=== PATIENT | female | born 1960 | race Caucasian/White ===

== ENCOUNTER 2023-10-29 17:06 | Outpatient (RCR) | payer BC, SELFPAY | END 2023-10-29 23:59 | disposition home or self-care (01) | LOC: RPT 17:06 | PROVIDERS: ATTENDING PHYSICIAN Psychiatry & Neurology Neurology; FAMILY PHYSICIAN Family Medicine | DX: M54.9 Dorsalgia, unspecified (principal); Z73.6 Limitation of activities due to disability | CPT/HCPCS: 97010; 97110; 97112; 97140; 97162 ==

== ENCOUNTER 2023-11-24 17:43 | Outpatient (RCR) | payer BC, SELFPAY | END 2023-12-01 07:38 | disposition home or self-care (01) | LOC: RPT 17:43 | PROVIDERS: FAMILY PHYSICIAN Family Medicine | DX: M54.9 Dorsalgia, unspecified (principal); Z73.6 Limitation of activities due to disability | CPT/HCPCS: 97010; 97110; 97112; 97140 ==

== ENCOUNTER 2024-01-27 12:33 | Outpatient (RCR) | payer BC, SELFPAY | END 2024-01-27 23:59 | disposition home or self-care (01) | LOC: RPT 12:33 | PROVIDERS: ATTENDING PHYSICIAN Physician Assistant Medical; FAMILY PHYSICIAN Family Medicine | DX: M54.50 Low back pain, unspecified (principal); M25.552 Pain in left hip; R10.30 Lower abdominal pain, unspecified; Z73.6 Limitation of activities due to disability; M43.26 Fusion of spine, lumbar region | CPT/HCPCS: 97110; 97162 ==

== ENCOUNTER 2024-03-02 17:12 | Outpatient (RCR) | payer BC, SELFPAY | END 2024-03-02 23:59 | disposition home or self-care (01) | LOC: RPT 17:12 | PROVIDERS: ATTENDING PHYSICIAN Physician Assistant Medical; FAMILY PHYSICIAN Family Medicine | DX: M54.50 Low back pain, unspecified (principal); M25.552 Pain in left hip; R10.30 Lower abdominal pain, unspecified; Z73.6 Limitation of activities due to disability; M43.26 Fusion of spine, lumbar region | CPT/HCPCS: 97010; 97110; 97112 ==

== ENCOUNTER 2024-03-28 17:15 | Outpatient (RCR) | payer BC, SELFPAY | END 2024-03-28 23:59 | disposition home or self-care (01) | LOC: RPT 17:15 | PROVIDERS: ATTENDING PHYSICIAN Physician Assistant Medical; FAMILY PHYSICIAN Family Medicine | DX: Z47.89 Encounter for other orthopedic aftercare (principal); M54.50 Low back pain, unspecified (principal); M25.552 Pain in left hip; R10.30 Lower abdominal pain, unspecified; Z73.6 Limitation of activities due to disability; M43.26 Fusion of spine, lumbar region | CPT/HCPCS: 97010; 97110; 97112; 97140 ==

== ENCOUNTER → 2024-03-30 16:07 | Outpatient (REF) | payer BC, SELFPAY | LOC: WDC 16:07 | PROVIDERS: ATTENDING PHYSICIAN Obstetrics & Gynecology; FAMILY PHYSICIAN Physician Assistant Medical | DX: M53.3 Sacrococcygeal disorders, not elsewhere classified (principal); M54.17 Radiculopathy, lumbosacral region; Z12.31 Encounter for screening mammogram for malignant neoplasm of breast | CPT/HCPCS: 72192; 77063; 77067 ==

== ENCOUNTER 2024-04-27 06:32 | Day surgery (SDC) | payer BC, SELFPAY ==
[2024-03-31 06:28] VITALS: BMI 30.8
[2024-03-31 09:12] LABS: Hematocrit 36.5 % (37.0-47.0); Hemoglobin 12.7 g/dL (12.0-16.0); Mean Corp Hgb Conc. 34.8 g/dL (33.0-37.0); Mean Corpuscular Hgb 33.9 pg (27.0-31.0); Mean Corpuscular Volume 97.3 fL (81.0-99.0); Mean Platelet Volume 11.6 fL (7.4-10.4); Platelet Count 281 10^3/uL (130-400); Red Blood Cell Count 3.75 10^6/uL (4.20-5.40); White Blood Cell Count 5.4 10^3/uL (4.8-10.8)
[2024-04-08 07:57] LABS: Blood Urea Nitrogen 26 mg/dl (7-17); Calcium 10.2 mg/dl (8.4-10.2); Carbon Dioxide 22 mmol/L (22-30); Chloride 103 mmol/L (98-107); Estimated Creatinine Clearance 76 ml/min; Glucose 117 mg/dl (70-99); Potassium 4.7 mmol/L (3.5-5.1); Sodium 138 mmol/L (135-145); eGFR > 60.00
[2024-04-27] VITALS (10 sets, daily range): BP systolic 132–166; BP diastolic 74–85; BMI 30.8
[2024-04-27] MEDS: TYLENOL 1000 MG PO (13:01)
[2024-04-27] MEDS: NORMOSOL-R/PLASMALYTE-A 1000 IV (13:35)
[2024-04-27] MEDS: DILAUDID 0.5 MG IV (16:04)
[2024-04-27] MEDS: ROXICODONE 5 MG PO (16:53)
== END 2024-04-27 17:25 | disposition home or self-care (01) ==
LOC: SDS 06:32
PROVIDERS: ATTENDING PHYSICIAN Surgery; FAMILY PHYSICIAN Family Medicine
DX: K40.90 Unilateral inguinal hernia, without obstruction or gangrene, not specified as recurrent (principal)
CPT/HCPCS: 49650; 36415; 80048; 85027; 93005; C1781

== ENCOUNTER 2024-06-05 15:10 | Emergency (ER) | payer BC, SELFPAY ==
[2024-06-05 15:12] VITALS: BP 127/86
[2024-06-05 16:10] VITALS: BP 122/68
[2024-06-05 16:13] VITALS: BP 122/68; BMI 28.9
--- NOTE | 2024-06-05 16:16 | ED.GENMED ---
History of Present Illness
General
Chief Complaint: Abdominal Pain
Source: patient
Exam Limitations: none
Time Seen by Provider: 06/05/24 15:24
Nursing documentation reviewed up to this point in time: agreed with
History of Present Illness
History of Present Illness:
64-year-old female presenting to the emergency department today with concerns of diffuse abdominal pain nausea constipation over the past 5 days gradually worsening. Denies any fevers chest pain shortness of breath.
Past History
Past History
ED Past Medical History: Cancer (Melanoma) and Other (Osteoarthritis)
ED Past Surgical History: Orthopedic
Social History
Tobacco: Non-smoker
Alcohol: None
Drug: None
Review of Systems
Review of Systems
Allergies reviewed?: Yes
All Other Systems: ROS reviewed and negative except as documented in HPI and ROS
Phy Exam
Physical Exam
Physical Exam:
GENERAL: Alert , in no apparent distress
EYE: pupils equal and reactive
NECK: Supple, no significant adenopathy.
ENT: o/p clr, mmm.
CARDIAC: Regular rate and rhythm .
LUNGS: Clear breath sounds bilaterally, no acute respiratory distress, no wheezes/rales/rhonchi
ABDOMEN: Vague diffuse abdominal pain otherwise soft no focal tenderness
NEUROLOGICAL: Alert and oriented, no focal neuro deficits
SKIN: Warm and dry, skin intact.
MUSCULOSKELETAL: No edema, well perfused.
PSYCH: Normal and appropriate interaction.
Course
Orders/Labs/Results
Orders:
Orders
06/05/24 15:41
CT Abd/Pel (IV only)-DH only Urgent
Comment:
Reason For Exam: diffusa abd pain bloating
06/05/24 16:11
Complete Blood Count/With Diff Urgent
Comprehensive Metabolic Panel Urgent
Lipase Urgent
06/05/24 17:14
Urinalysis Reflex To Culture Urgent
Date Specimen was Collected: 06/05/24
Time Specimen was Collected: 16:57
Urine Microscopic Reflex Cult Urgent
06/05/24 18:13
Amoxicillin 875 mg/Clav 125 mg [Augmentin 875 mg/125 mg] 1 tablet PO NOW STA
Abnormal Lab Results
06/05/24 06/05/24
16:11 17:14
RBC 3.55 L 10^6/uL
(4.20-5.40)
Hgb 11.7 L g/dL
(12.0-16.0)
Hct 33.9 L %
(37.0-47.0)
MCH 33.0 H pg
(27.0-31.0)
MPV 10.8 H fL
(7.4-10.4)
Absolute Monos (auto) 0.8 H 10^3/uL
(0.1-0.6)
Monocytes % 10.5 H %
(1.7-9.3)
BUN 25 H mg/dl
(7-17)
Leukocyte Esterase Rfl Trace A
(Negative)
Urine Bacteria (Reflex) Few A
(Negative)
06/05/24 16:11
06/05/24 16:11
Vital Signs
Initial and Last Documented VS:
Initial Vital Signs
Temp Pulse Resp BP Pulse Ox
98.6 F 86 18 127/86 98
06/05/24 15:12 06/05/24 15:12 06/05/24 15:12 06/05/24 15:12 06/05/24 15:12
Last Documented Vital Signs
Temp Pulse Resp BP Pulse Ox
98.5 F 61 20 146/65 98
06/05/24 16:13 06/05/24 16:13 06/05/24 16:13 06/05/24 17:15 06/05/24 17:45
MDM/Problems Addressed
MDM/Problems Addressed:
64-year-old female presenting to the emergency department today with concerns of diffuse abdominal pain with associated nausea constipation worsening over the past 5 days. Upon arrival vital signs are normal. Patient does have vague abdominal pain
to palpation throughout. Plan for CT scan for further assessment. CT showing diverticulitis. Specifically the read is mild uncomplicated sigmoid diverticulitis. Mild colonic stool burden. Findings were discussed with the patient. Otherwise
patient stable for discharge no signs of complication. Return precautions given.
*Critical Care Note
Total Time (30-74mins, 75-104mins- exclusive of procedures): Not Applicable
ED Attending Note
-
Portions of this chart may have been created with voice recognition software.� Occasional wrong word or��sound alike� substitutions may have occurred due to the inherent limitations of voice recognition software.
Discharge Plan
Departure
Patient Disposition: Home (Routine Discharge)
Date of Disposition: 06/05/24
Time of Disposition: 18:16
Patient with high blood pressure during this ER visit?: No
Condition: Good
Covid-19: Not Applicable
Discharge Problem:
Diverticulitis
Instructions: Diverticulitis (DC)
Prescriptions:
New
amoxicillin-pot clavulanate 875-125 mg tablet
1 tab PO BID 7 Days Qty: 14 0RF
No Action
cholecalciferol (vitamin D3) [Vitamin D3] 1,000 UNITS tablet
1,000 units PO DAILY Qty: 0
losartan [Cozaar] 100 MG tablet
100 mg PO DAILY Qty: 0 0RF
Rx Instructions:
HOLD SYSTOLIC BLOOD PRESSURE <130
Metamucil Fiber Singles 1 PACKET powder in packet
1 packet PO DAILY
paroxetine HCl [Paxil] 10 mg Tablet
10 mg PO DAILY
zolpidem [Ambien] 10 mg Tablet
10 mg PO HS PRN (Reason: sleep)
Patient Comments:
02/02/2022: last filled 01/02/22, 30 tabs for 30 days from [facility]#[id number]
simvastatin 40 mg Tablet
40 mg PO HS
multivitamin Tablet
1 tab PO DAILY
coenzyme Q10 [CoQ-10] 100 mg Capsule
100 mg PO DAILY
omega 4-aag-wbj-fish oil [Fish Oil] 1,200 (144-216) mg Capsule
1,200 cap PO DAILY
Bonafide
2 tab PO DAILY
Patient Comments:
For Hot Flashes
Plant Sterol
1 cap PO DAILY
chromium picolinate
1 tab PO DAILY
turmeric
1 tab PO DAILY
acetaminophen [acetaminophen] 325 mg tablet
650 mg PO Q4HPRN PRN (Reason: mild pain) Qty: 1 0RF
ibuprofen 200 mg tablet
400 - 600 mg PO Q6HPRN PRN (Reason: moderate pain) Qty: 1 0RF
oxycodone 5 mg tablet
5 mg PO Q4HPRN PRN (Reason: breakthrough/severe pain) Qty: 10 0RF
Referrals:
Mega Gutierrez DO [Active] - Follow up in 5-7 days
Florencio Richter DO [Family Provider] -
Activity Restrictions/Additional Instructions:
You came to the emergency department today with concerns of abdominal discomfort. You are found to have diverticulitis. Please take Augmentin twice daily of the neck 7 days and slowly progress your diet. Please have close with GI. Return to the
emergency department for any worsening, new or concerning symptoms.
Interventions
Interventions:
*Risk Screen - Suicide Last Done: 06/05/24 15:15
*General Assessment Last Done: 06/05/24 15:15
*Neglect/Abuse Screening Last Done: 06/05/24 15:15
ED- Fall Risk Assessment Last Done: 06/05/24 16:13
*ED COVID-19 Vaccine History Last Done: 06/05/24 15:15
SX-Vmrodf-Kvewclazdm Assessment Last Done: 06/05/24 16:13
Discharge Date and Time
Print Language: [place]
[2024-06-05 16:23] LABS: % Basophils 0.6 % (0-2); % Eosinophils 3.1 % (0-6); % Immature Granulocytes 0.4 % (0-0.5); % Lymphocytes 26.5 % (20.5-51.1); % Monocytes 10.5 % (1.7-9.3); % Neutrophils 58.9 % (42.2-75.2); Absolute Eosinophils 0.2 10^3/uL (0-0.7); Absolute Lymphocytes 1.9 10^3/uL (1.2-3.4); Absolute Monocytes 0.8 10^3/uL (0.1-0.6); Absolute Neutrophils 4.2 10^3/uL (1.4-6.5); Hematocrit 33.9 % (37.0-47.0); Hemoglobin 11.7 g/dL (12.0-16.0); Mean Corp Hgb Conc. 34.5 g/dL (33.0-37.0); Mean Corpuscular Volume 95.5 fL (81.0-99.0); Mean Platelet Volume 10.8 fL (7.4-10.4); Nucleated Red Blood Cells % 0 %; Platelet Count 272 10^3/uL (130-400); Red Blood Cell Count 3.55 10^6/uL (4.20-5.40); Red Cell Dist. Width 13.1 % (11.5-14.5); White Blood Cell Count 7.2 10^3/uL (4.8-10.8)
[2024-06-05 16:34] LABS: ALT (SGPT) 24 U/L (0-35); AST (SGOT) 30 U/L (14-36); Albumin 4.5 g/dl (3.5-5.0); Alkaline Phosphatase 64 U/L (38-126); Blood Urea Nitrogen 25 mg/dl (7-17); Calcium 9.8 mg/dl (8.4-10.2); Carbon Dioxide 29 mmol/L (22-30); Chloride 100 mmol/L (98-107); Estimated Creatinine Clearance 74 ml/min; Glucose 93 mg/dl (70-99); Lipase 112 U/L (23-300); Potassium 4.9 mmol/L (3.5-5.1); Sodium 139 mmol/L (135-145); Total Protein 7.1 g/dl (6.3-8.2); eGFR > 60.00
[2024-06-05 17:15] VITALS: BP 146/65
[2024-06-05 17:24] LABS: Urine Albumin Negative (Neg - Trace); Urine Bilirubin Negative (Negative); Urine Character Clear (Clear); Urine Color Yellow; Urine Glucose Negative (Negative); Urine Ketone Negative (Negative); Urine Leukocyte Trace (Negative); Urine Nitrite Negative (Negative); Urine Occult Blood Negative (Negative); Urine Urobilinogen Negative (Neg - 1+)
[2024-06-05 17:33] LABS: Urine Mucus Few
[2024-06-05 17:34] LABS: Urine Bacteria Few (Negative); Urine Red Blood Cell 0-2 /HPF (0-2); Urine White Cell 0-2 /HPF (0-5)
[2024-06-05 18:00] VITALS: BP 136/75
[2024-06-05] MEDS: AUGMENTIN 875 MG/125 MG 1 TABLET PO (18:26)
== END 2024-06-05 18:43 | disposition home or self-care (01) ==
LOC: EMR 15:10
PROVIDERS: Physician Assistant; EMERGENCY PHYSICIAN Emergency Medicine; FAMILY PHYSICIAN Family Medicine
DX: K57.32 Diverticulitis of large intestine without perforation or abscess without bleeding (principal); Z85.820 Personal history of malignant melanoma of skin
CPT/HCPCS: 99284; 74177; 80053; 81003; 81015; 83690; 85025; Q9967

== ENCOUNTER 2024-08-31 18:59 | Emergency (ER) | payer BC, SELFPAY ==
[2024-08-31 19:14] VITALS: BP 136/83
--- NOTE | 2024-08-31 20:30 | ED.GENMED ---
History of Present Illness
General
Chief Complaint: Skin Surface Trauma
Source: patient
Time Seen by Provider: 08/31/24 19:21
History of Present Illness
History of Present Illness:
64-year-old female presenting to the emergency department for evaluation after she accidentally cut her left middle finger on a knife at around 230, notes the bleeding would not stop prompting her to come to the ER for further evaluation. Patient
is right-hand dominant. Tetanus vaccine up-to-date.
Past History
Past History
ED Past Medical History: Cancer (Melanoma), HTN, Hypercholesterolemia and Other (Osteoarthritis)
ED Past Surgical History: Orthopedic and Other
Social History
Tobacco: Non-smoker
Alcohol: None
Drug: None
Personal:
Living: with family
Review of Systems
Review of Systems
All Other Systems: ROS reviewed and negative except as documented in HPI and ROS
Phy Exam
Physical Exam
Physical Exam:
GENERAL: Alert , in no apparent distress
EYE: conjunctiva clear
Head: Normocephalic atraumatic
NECK: Supple,
ENT: mmm.
LUNGS: no acute respiratory distress
NEUROLOGICAL: Alert and oriented
SKIN: Warm and dry, less than 5 mm skin avulsion to the lateral aspect of the tip of the left middle finger. Mild oozing but no arterial spurting
MUSCULOSKELETAL: well perfused.
PSYCH: Normal and appropriate interaction.
Scores
Heart Failure Risk
Heart Failure Risk Score: Not Applicable
Heart Score for Chest Pain Patients
STEMI patient?: Not applicable
Withdrawal Assessment of Alcohol
Withdrawal Assessment Completed?: Not applicable
Course
Vital Signs
Initial and Last Documented VS:
Initial Vital Signs
Temp Pulse Resp BP Pulse Ox
98.2 F 69 16 136/83 98
08/31/24 19:14 08/31/24 19:14 08/31/24 19:14 08/31/24 19:14 08/31/24 19:14
Last Documented Vital Signs
Temp Pulse Resp BP Pulse Ox
98.2 F 69 16 136/83 98
08/31/24 19:14 08/31/24 19:14 08/31/24 19:14 08/31/24 19:14 08/31/24 19:14
MDM/Problems Addressed
Differential Diagnosis Includes:
Superficial laceration. No concern for tendon or nerve laceration or fracture
MDM/Problems Addressed:
64-year-old female presenting to the emergency department for evaluation of left middle finger laceration sustained while cutting with a knife earlier this evening. Bleeding controlled with pressure however there is continuous oozing once pressure
is relieved. Will place Gelfoam and bandage over top. Patient advised on remaining wound care recommendations. Patient is otherwise stable for discharge home.
*Pulse Oximetry
Patient hypoxic: no
*Critical Care Note
Total Time (30-74mins, 75-104mins- exclusive of procedures): Not Applicable
ED Attending Note
-
Portions of this chart may have been created with voice recognition software.� Occasional wrong word or��sound alike� substitutions may have occurred due to the inherent limitations of voice recognition software.
Discharge Plan
Departure
Patient Disposition: Home (Routine Discharge)
Date of Disposition: 08/31/24
Time of Disposition: 20:31
Patient with high blood pressure during this ER visit?: No
Discharge Problem:
Laceration of left middle finger
Instructions: Wound Care (DC)
Prescriptions:
No Action
cholecalciferol (vitamin D3) [Vitamin D3] 1,000 UNITS tablet
1,000 units PO DAILY Qty: 0
losartan [Cozaar] 100 MG tablet
100 mg PO DAILY Qty: 0 0RF
Rx Instructions:
HOLD SYSTOLIC BLOOD PRESSURE <130
Metamucil Fiber Singles 1 PACKET powder in packet
1 packet PO DAILY
paroxetine HCl [Paxil] 10 mg Tablet
10 mg PO DAILY
zolpidem [Ambien] 10 mg Tablet
10 mg PO HS PRN (Reason: sleep)
Patient Comments:
02/02/2022: last filled 01/02/22, 30 tabs for 30 days from [id number]
simvastatin 40 mg Tablet
40 mg PO HS
multivitamin Tablet
1 tab PO DAILY
coenzyme Q10 [CoQ-10] 100 mg Capsule
100 mg PO DAILY
omega 4-wqv-zks-fish oil [Fish Oil] 1,200 (144-216) mg Capsule
1,200 cap PO DAILY
Bonafide
2 tab PO DAILY
Patient Comments:
For Hot Flashes
Plant Sterol
1 cap PO DAILY
chromium picolinate
1 tab PO DAILY
turmeric
1 tab PO DAILY
acetaminophen [acetaminophen] 325 mg tablet
650 mg PO Q4HPRN PRN (Reason: mild pain) Qty: 1 0RF
ibuprofen 200 mg tablet
400 - 600 mg PO Q6HPRN PRN (Reason: moderate pain) Qty: 1 0RF
oxycodone 5 mg tablet
5 mg PO Q4HPRN PRN (Reason: breakthrough/severe pain) Qty: 10 0RF
amoxicillin-pot clavulanate 875-125 mg tablet
1 tab PO BID 7 Days Qty: 14 0RF
Referrals:
Florencio Richter, DO [Family Provider] -
Interventions
Interventions:
*Risk Screen - Suicide Last Done: 08/31/24 19:14
*General Assessment Last Done: 08/31/24 19:47
*Neglect/Abuse Screening Last Done: 08/31/24 19:14
*ED COVID-19 Vaccine History Last Done: 08/31/24 19:47
*Nursing Disposition Last Done: 08/31/24 20:49
ED-Skin Assessment Last Done: 08/31/24 19:47
Discharge Date and Time
Discharge Date/Time: 08/31/24 20:49
Print Language: [place] CITIZEN
== END 2024-08-31 20:49 | disposition home or self-care (01) ==
LOC: EMR 18:59
PROVIDERS: EMERGENCY PHYSICIAN Emergency Medicine; FAMILY PHYSICIAN Family Medicine
DX: S61.213A Laceration without foreign body of left middle finger without damage to nail, initial encounter (principal); W26.0XXA Contact with knife, initial encounter
CPT/HCPCS: 99282

== ENCOUNTER 2025-02-23 16:24 | Emergency (ER) | payer BC, SELFPAY ==
[2025-02-23 16:30] VITALS: BP 148/79
[2025-02-23 17:39] VITALS: BMI 28.9
--- NOTE | 2025-02-23 17:57 | ED.MUSCINJ ---
HPI-Injury
General
Chief Complaint: Musculo-Skeletal Complaint
Source: patient
Exam Limitations: none
Time Seen by Provider: 02/23/25 17:25
History of Present Illness-Injury
Initial Injury comments:
64-year-old female presents complaining of pain to the anterior distal wilson and ankle of the left leg. She states she got a cramp in bed this morning and got up to try to stretch her cramp out and she fell to in the ankle. Her pain was tolerable
immediately following however throughout the day her pain seemed to get worse over the dorsum of the foot anterior distal wilson and radiating up the lateral wilson. She denies numbness or tingling. No chest pain or shortness of breath. No recent
travel or surgery. She admits to having difficulty dorsiflexing her foot.
Past History
Past History
ED Past Medical History: Cancer (Melanoma), HTN, Hypercholesterolemia and Other (Osteoarthritis)
ED Past Surgical History: Orthopedic and Other
Social History
Tobacco: Non-smoker
Alcohol: None
Drug: None
Personal:
Living: with family
Phy Exam
Physical Exam
Physical Exam:
General: Well-appearing female no acute respiratory distress
HEENT: Normocephalic atraumatic
Musculoskeletal exam: The patient is tender over the anterior distal left wilson and. There is soft tissue swelling noted here. She is having difficulty dorsiflexing left ankle. She is able to resist eversion and inversion. Ankle stable to drawer
test
Vascular: Compartments soft. 2+DP pulse left foot.
Skin; intact, no laceration.
Injury Course
Orders/Labs/Results
Orders:
Orders
02/23/25 16:36
CR Leg Tibia/fibula Left 2 Vw Urgent
Comment:
Reason For Exam: pain/pop noise
Periph Venous Lwr Ext Left US [US Periph Venous LOWER Ext LT] Urgent
Comment:
Reason For Exam: pain/spasm/swelling
02/23/25 18:41
Ortho Boot Left- Treatment ONCE
Short or tall?: Tall
MDM/Problems Addressed
Differential Diagnosis Includes:
Left ankle and distal wilson pain with difficulty dorsiflexing left foot. This started after hearing 2 pops this morning stretching out a cramp in her leg. Ultrasound ordered for out front to evaluate for DVT however no DVT risk factors ultrasound
was negative for DVT. X-ray left tib-fib was ordered without acute bony abnormality. On the ultrasound, however, there was a hematoma noted perhaps in the tibialis anterior tendon. Concern for possible tendon injury with difficulty foot. Will
plan on placing an orthopedic boot and have her follow-up with orthopedics for further evaluation
*Pulse Oximetry
SaO2: 98
Oxygen Mode of Delivery: Room air
Patient hypoxic: no
*Critical Care Note
Total Time (30-74mins, 75-104mins- exclusive of procedures): Not Applicable
Update Note
Update Note:
Ultrasound negative for DVT patient reassured. Suspect tendon injury of the tibialis anterior tendon or muscle. Will place an orthopedic boot and advised follow-up with orthopedics.
ED Attending Note
-
Portions of this chart may have been created with voice recognition software.� Occasional wrong word or��sound alike� substitutions may have occurred due to the inherent limitations of voice recognition software.
Discharge Plan
Departure
Patient Disposition: Home (Routine Discharge)
Date of Disposition: 02/23/25
Time of Disposition: 18:48
Patient with high blood pressure during this ER visit?: No
Discharge Problem:
Injury of tendon of ankle
Prescriptions:
No Action
cholecalciferol (vitamin D3) [Vitamin D3] 1,000 UNITS tablet
1,000 units PO DAILY Qty: 0
losartan [Cozaar] 100 MG tablet
100 mg PO DAILY Qty: 0 0RF
Rx Instructions:
HOLD SYSTOLIC BLOOD PRESSURE <130
Metamucil Fiber (aspartame) 1 PACKET powder in packet
1 packet PO DAILY
paroxetine HCl [Paxil] 10 mg Tablet
10 mg PO DAILY
zolpidem [Ambien] 10 mg Tablet
10 mg PO HS PRN (Reason: sleep)
Patient Comments:
02/02/2022: last filled 01/02/22, 30 tabs for 30 days from [facility]#[id number]
simvastatin 40 mg Tablet
40 mg PO HS
multivitamin Tablet
1 tab PO DAILY
coenzyme Q10 [CoQ-10] 100 mg Capsule
100 mg PO DAILY
omega 4-rtw-jfs-fish oil [Fish Oil] 1,200 (144-216) mg Capsule
1,200 cap PO DAILY
Bonafide
2 tab PO DAILY
Patient Comments:
For Hot Flashes
Plant Sterol
1 cap PO DAILY
chromium picolinate
1 tab PO DAILY
turmeric
1 tab PO DAILY
acetaminophen [acetaminophen] 325 mg tablet
650 mg PO Q4HPRN PRN (Reason: mild pain) Qty: 1 0RF
ibuprofen 200 mg tablet
400 - 600 mg PO Q6HPRN PRN (Reason: moderate pain) Qty: 1 0RF
oxycodone 5 mg tablet
5 mg PO Q4HPRN PRN (Reason: breakthrough/severe pain) Qty: 10 0RF
amoxicillin-pot clavulanate 875-125 mg tablet
1 tab PO BID 7 Days Qty: 14 0RF
Referrals:
Lilia Cabrera PA-C [Family Provider, Family Practice]
Activity Restrictions/Additional Instructions:
Use a boot for support and ambulating. Elevate for swelling. Use Tylenol or ibuprofen if needed for pain. Follow-up with orthopedics for further evaluation of possible tendon and
Interventions
Interventions:
*Risk Screen - Suicide Last Done: 02/23/25 16:33
*General Assessment Last Done: 02/23/25 17:39
*Neglect/Abuse Screening Last Done: 02/23/25 16:33
*ED- Fall Risk Assessment Last Done: 02/23/25 16:33
*ED COVID-19 Vaccine History Last Done: 02/23/25 17:39
ED-Musculoskeletal Assessment Last Done: 02/23/25 17:39
Discharge Date and Time
Print Language: [place]
== END 2025-02-23 19:17 | disposition home or self-care (01) ==
LOC: EMR 16:24
PROVIDERS: EMERGENCY PHYSICIAN Emergency Medicine; FAMILY PHYSICIAN Physician Assistant Medical
DX: S96.902A Unspecified injury of unspecified muscle and tendon at ankle and foot level, left foot, initial encounter (principal); X58.XXXA Exposure to other specified factors, initial encounter; R22.42 Localized swelling, mass and lump, left lower limb; I10 Essential (primary) hypertension; E78.00 Pure hypercholesterolemia, unspecified; M19.90 Unspecified osteoarthritis, unspecified site; Z85.820 Personal history of malignant melanoma of skin
CPT/HCPCS: 99284; 73590; 93971

== ENCOUNTER 2025-03-13 06:13 | Day surgery (SDC) | payer BC, SELFPAY ==
[2025-03-11 09:30] LABS: Hematocrit 35.2 % (37.0-47.0); Hemoglobin 11.8 g/dL (12.0-16.0); Mean Corp Hgb Conc. 33.5 g/dL (33.0-37.0); Mean Corpuscular Volume 98.3 fL (81.0-99.0); Nucleated Red Blood Cells % 0 %; Platelet Count 235 10^3/uL (130-400); Red Cell Dist. Width 13.2 % (11.5-14.5)
[2025-03-11 09:59] LABS: Blood Urea Nitrogen 16 mg/dl (7-17); Calcium 9.7 mg/dl (8.4-10.2); Carbon Dioxide 26 mmol/L (22-30); Chloride 104 mmol/L (98-107); Glucose 118 mg/dl (70-99); Potassium 4.0 mmol/L (3.5-5.1); Sodium 137 mmol/L (135-145); eGFR > 60.00
[2025-03-13] VITALS (8 sets, daily range): BP systolic 123–143; BP diastolic 67–85; BMI 31.0
[2025-03-13] MEDS: TYLENOL 1000 MG PO (09:24)
[2025-03-13] MEDS: CELEBREX 200 MG PO (09:24)
[2025-03-13] MEDS: NORMOSOL-R/PLASMALYTE-A 1000 IV (09:31)
== END 2025-03-13 14:10 | disposition home or self-care (01) ==
LOC: SDS 06:13
PROVIDERS: ATTENDING PHYSICIAN Student in an Organized Health Care Education/Training Program; FAMILY PHYSICIAN Family Medicine
DX: S86.212A Strain of muscle(s) and tendon(s) of anterior muscle group at lower leg level, left leg, initial encounter (principal); M67.02 Short Achilles tendon (acquired), left ankle; X58.XXXA Exposure to other specified factors, initial encounter
CPT/HCPCS: 27665; C1762; 36415; 80048; 85025; 93005

== ENCOUNTER 2025-06-02 09:16 | Outpatient (RCR) | payer BC, SELFPAY | END 2025-06-02 23:59 | disposition home or self-care (01) | LOC: RPT 09:16 | PROVIDERS: ATTENDING PHYSICIAN Student in an Organized Health Care Education/Training Program | DX: Z47.89 Encounter for other orthopedic aftercare (principal); S86.211D Strain of muscle(s) and tendon(s) of anterior muscle group at lower leg level, right leg, subsequent encounter; Z73.6 Limitation of activities due to disability; R26.89 Other abnormalities of gait and mobility; M62.81 Muscle weakness (generalized) | CPT/HCPCS: 97010; 97110; 97112; 97116; 97140; 97162; 97530 ==

== ENCOUNTER 2025-06-26 13:39 | Outpatient (RCR) | payer BC, SELFPAY | END 2025-06-26 23:59 | disposition home or self-care (01) | LOC: RPT 13:39 | PROVIDERS: ATTENDING PHYSICIAN Student in an Organized Health Care Education/Training Program | DX: Z47.89 Encounter for other orthopedic aftercare (principal); S86.211D Strain of muscle(s) and tendon(s) of anterior muscle group at lower leg level, right leg, subsequent encounter; Z73.6 Limitation of activities due to disability; R26.89 Other abnormalities of gait and mobility; M62.81 Muscle weakness (generalized) | CPT/HCPCS: 97110; 97112; 97530 ==

== ENCOUNTER 2025-07-24 17:02 | Outpatient (RCR) | payer BC, SELFPAY | END 2025-07-25 05:50 | disposition home or self-care (01) | LOC: RPT 17:02 | PROVIDERS: ATTENDING PHYSICIAN Student in an Organized Health Care Education/Training Program | DX: Z47.89 Encounter for other orthopedic aftercare (principal); S86.211D Strain of muscle(s) and tendon(s) of anterior muscle group at lower leg level, right leg, subsequent encounter; Z73.6 Limitation of activities due to disability; R26.89 Other abnormalities of gait and mobility; M62.81 Muscle weakness (generalized) | CPT/HCPCS: 97110 ==